=== PATIENT | female | born 1965 | race Caucasian/White ===

== ENCOUNTER 2024-08-19 10:58 | Emergency (ER) | payer OTHER, SELFPAY ==
[2024-08-19] VITALS (20 sets, daily range): BP systolic 158–226; BP diastolic 72–139; PULSE 70–114; RESP 18–28; TEMP 36.9; O2SAT 91–98; BMI 38.2
--- NOTE | 2024-08-19 11:54 | EKG_ITS ---
[place] [id number] [place] [id number] Test Date: 2024-08-19 Pat Name: Cindy Sandhu Department: [facility] Room: Gender: Female [employer] Tender: VICENTE : 1965 Requested By: Order Number: [id number] Reading MD: Adolfo Olsen Measurements Intervals Menan Rate: 78 P: 26 MS: 144 QRS: 4 QRSD: 86 T: 55 QT: 434 QTc: 494 Interpretive Statements Normal sinus rhythm Inferior infarct , age undetermined Cannot rule out Anterior infarct , age undetermined Electronically Signed On 08-19-2024 12:57:48 PST by Adolfo Olsen
--- NOTE | 2024-08-19 11:54 | DI.RAD.S_ITS ---
PROCEDURE: XR CHEST 1V INDICATIONS: hypertension TECHNIQUE: One view of the chest was acquired. COMPARISON: [facility], , CHEST 1 VIEW, 08/14/2017, 21:58. FINDINGS: Surgical changes and devices: None. Lungs and pleura: Lungs are clear. No pleural effusions or pneumothorax. Mediastinum: Mediastinal contours appear normal. Heart size is enlarged. Bones and chest wall: No suspicious bony lesions. Overlying soft tissues appear unremarkable. IMPRESSION: Cardiomegaly. No acute pulmonary process. Dictated by: Juni Walker M.D. on 08/19/2024 at 12:22 Approved by: Juni Walker M.D. on 08/19/2024 at 12:23
--- NOTE | 2024-08-19 11:54 | DI.CT.S_ITS ---
PROCEDURE: CT HEAD/BRAIN WO CON INDICATIONS: memory issues x 1 year TECHNIQUE: Noncontrast 4.5 mm thick angled axial sections acquired from the foramen magnum to the vertex, with coronal and sagittal reformats. For radiation dose reduction, the following was used: automated exposure control, adjustment of mA and/or kV according to patient size. COMPARISON: None. FINDINGS: Image quality: Diagnostic. CSF spaces: Basal cisterns are patent. No extra-axial fluid collections. The ventricles are symmetric in size and shape. Brain: Focus of higher density within the mid trisha measuring 6 millimeters. There is cerebral volume loss for age, with resultant ventricular and sulcal prominence. There are periventricular and deep white matter chronic small vessel ischemic changes. There is intracranial internal carotid artery atherosclerosis. Skull and face: Calvarium and visualized facial bones appear intact, without suspicious lesions. Sinuses: Visualized sinuses and mastoids are clear. IMPRESSION: Focus of hyperdensity within the mid trisha measuring 6 millimeters concerning for hemorrhage with mild surrounding low density, likely representing edema. Hypertensive hemorrhage is in the differential. Recommend MRI brain with and without contrast once hemorrhage resolves to exclude underlying neoplasm. Moderate chronic microvascular ischemic changes. Findings discussed with Dr. Emmanuel at the time of dictation. Dictated by: Juni Walker M.D. on 08/19/2024 at 12:37 Approved by: Juni Walker M.D. on 08/19/2024 at 12:43
[2024-08-19 12:14] LABS: Add Manual Diff / Slide Review NO; Basophils Absolute Auto 100 /uL (0-100); Eosinophils Absolute Auto 100 /uL (0-450); Eosinophils Percent Auto 1.2 % (2-4); Hematocrit 46.1 % (36-46); Lymphocytes Absolute Auto 1700 /uL (1100-4500); Mean Corpuscular HGB Conc 34.7 % (30-36); Mean Corpuscular Volume 89.2 fL (80-100); Monocytes Absolute Auto 400 /uL (0-900); Monocytes Percent Auto 4.5 % (3-14); Neutrophils Absolute Auto 6500 /uL (1500-7000); Neutrophils Percent Auto 74.3 % (50-75); Platelet Count 288 X10^3/uL (150-400); Red Blood Cell Count 5.16 X10^6/uL (4.0-5.2); White Blood Cell Count 8.7 X10^3/uL (4.5-11.0)
--- NOTE | 2024-08-19 12:14 | ED.AMS ---
HPI - Altered Mental Status General Chief Complaint: Altered Mental Status Stated Complaint: Memory issues over a year Time Seen by Provider: 08/19/24 11:54 Source: patient Mode of arrival: Ambulatory History of Present Illness HPI narrative: Patient is a 58-year-old female presenting today concern by her neighbor with ongoing memory issues. She lives alone on a [place]. Neighbor reports that for the last here she has had some difficulty met with her memory. She did have a closed head injury last summer was never seen or evaluated. It some point she went to the chiropractor. Patient is aware that she is in the emergency department for evaluation. She knows what year it is what season she really has no complaints. She is afebrile she is noted to be extremely hypertensive blood pressure of 220/119. Denying any chest pain or shortness of breath. She was perseverating on the fact that she normally puts her keys in her things exactly in the place but now she can not find them which is frustrating for her. She lives alone she has no family. Neighbor reports that symptoms have gotten worse over the last few days Related Data Home Medications Medication Instructions Recorded Confirmed thyroid (pork) 16.25 mg tablet 16.25 mg PO QDAY@0600 #0 tabs 04/02/13 (Nature-Throid) amlodipine 5 mg tablet (Norvasc) 5 mg PO QDAY ##0 08/14/17 Allergies Allergy/AdvReac Type Severity Reaction Status Date / Time lisinopril [LISINOPRIL] Allergy Unknown Unverified 11/04/17 12:02 Patient History Social History Smoking Status: Never smoker Smoking Status: Never smoker Exam Initial Vital Signs Initial Vital Signs: Vital Signs Temperature 98.4 F 08/19/24 11:20 Pulse Rate 92 H 08/19/24 11:20 Respiratory Rate 18 08/19/24 11:20 Blood Pressure 220/119 H 08/19/24 11:20 Pulse Oximetry 94 08/19/24 11:20 Oxygen Delivery Method Room Air 08/19/24 11:20 GENERAL: Pleasant nontoxic well-appearing 58-year-old female and in no acute distress. HEENT: Head atraumatic,EOMI, pupils reactive, face symmetric, moist mucous membranes CARDIOVASCULAR: Regular rate and rhythm without murmurs, rubs or gallops. RESPIRATORY: Breath sounds equal bilaterally, no wheezes rales or rhonchi. ABDOMEN: Soft, nontender. Normoactive bowel sounds all 4 quadrants. No guarding or rebound. EXTREMITIES: Normal range of motion, no clubbing or edema. Neurovascularly intact NEUROLOGICAL: Alert and oriented x4.Normal gait and speech. Cranial nerves II through XII grossly intact. Field Observer strength equal bilaterally able to ambulate in the ED to the restroom without ataxia can spell world backwards can count by sevens SKIN: Warm, dry, no laceration, no petechiae, no rashes or lesions. Scores GCS Alva coma scale eye opening: Spontaneous Alva coma scale verbal response: Orientated Loly coma scale motor response: Obey commands Loly coma scale total score: 15 NIH Stroke Scale Level of Conciousness: Alert, keenly responsive Ask month/age: Answers both questions correctly. Open/close eyes, close hand: Performs both tasks correctly Best gaze horizontal: Normal Visual ann: No visual loss Facial palsy: Normal symetrical movement Left arm drift: No drift for full 10 sec Right arm drift: No drift for full 10 sec Left leg drift: No drift for full 5 sec Right leg drift: No drift for full 5 sec Limb ataxia: Absent Sensory on face/arms/legs: Normal, no sensory loss Best language: No aphasia, normal Dysarthria: Normal Extinction or inattention: No abnormality Total NIH Stroke scale score: 0 Course Orders Ordered: ED Orders 08/19/24 11:24 [place] [facility] [place] Paper Testing Stat 08/19/24 11:54 CT head/brain wo con Stat Chest [XR chest 1V] Stat EKG-12 Lead Stat 08/19/24 12:00 ETOH [Ethanol (ETOH)] Stat 08/19/24 12:04 CBC Auto Diff [Complete Blood Count AUTO DIFF] Stat CMP [Comprehensive Metabolic Panel] Stat Troponin & CK Cardiac Panel Stat 08/19/24 12:16 Urine Culture Stat Urine Drug Screen, Rapid Stat Urine Microscopic Stat 08/19/24 13:18 CT angio head and neck Stat Discontinued Medications Nicardipine HCl 25 mg/ Sodium (Chloride) 250 mls @ 50 mls/hr IV TITRATE TED; Protocol Last Titration: 08/19/24 13:53 Dose: 11 mg/hr, 110 mls/hr Documented By: Titration: 08/19/24 13:40 Dose: 10.5 mg/hr, 105 mls/hr Documented By: Titration: 08/19/24 13:31 Dose: 8 mg/hr, 80 mls/hr Documented By: Titration: 08/19/24 13:23 Dose: 7.5 mg/hr, 75 mls/hr Documented By: Admin: 08/19/24 13:14 Dose: 5 mg/hr, 50 mls/hr Documented By: LULA Vital Signs Vital signs: Vital Signs - 8 hr 08/19/24 11:20 08/19/24 12:27 08/19/24 12:27 Temperature 98.4 F Pulse Rate 92 H 84 Respiratory Rate 18 Blood Pressure 220/119 H 199/108 H Pulse Oximetry 94 96 Oxygen Delivery Method Room Air 08/19/24 12:30 08/19/24 12:30 08/19/24 13:00 Temperature Pulse Rate 76 79 Respiratory Rate 23 Blood Pressure 206/112 H Pulse Oximetry 97 97 Oxygen Delivery Method 08/19/24 13:01 08/19/24 13:01 08/19/24 13:15 Temperature Pulse Rate 82 Respiratory Rate 22 Blood Pressure 211/139 H 216/115 H Pulse Oximetry 96 Oxygen Delivery Method 08/19/24 13:15 08/19/24 13:20 08/19/24 13:20 Temperature Pulse Rate 70 79 Respiratory Rate 23 28 H Blood Pressure 226/104 H Pulse Oximetry 96 98 Oxygen Delivery Method 08/19/24 13:29 08/19/24 13:29 08/19/24 13:30 Temperature Pulse Rate 93 H 93 H Respiratory Rate Blood Pressure 172/112 H Pulse Oximetry 97 95 Oxygen Delivery Method 08/19/24 13:32 08/19/24 13:32 08/19/24 13:39 Temperature Pulse Rate 95 H Respiratory Rate 22 Blood Pressure 203/121 H 192/95 H Pulse Oximetry 97 Oxygen Delivery Method 08/19/24 13:39 08/19/24 13:40 08/19/24 13:40 Temperature Pulse Rate 100 H 97 H Respiratory Rate 26 H 25 H Blood Pressure 185/99 H Pulse Oximetry 97 96 Oxygen Delivery Method 08/19/24 13:41 08/19/24 13:41 08/19/24 13:45 Temperature Pulse Rate 97 H Respiratory Rate 28 H Blood Pressure 195/99 H 187/97 H Pulse Oximetry 96 Oxygen Delivery Method 08/19/24 13:45 08/19/24 13:52 08/19/24 13:52 Temperature Pulse Rate 100 H 103 H Respiratory Rate Blood Pressure 190/84 H Pulse Oximetry 96 Oxygen Delivery Method 08/19/24 13:55 08/19/24 13:55 08/19/24 13:59 Temperature Pulse Rate 108 H Respiratory Rate Blood Pressure 187/86 H 176/87 H Pulse Oximetry Oxygen Delivery Method 08/19/24 13:59 08/19/24 14:00 08/19/24 14:00 Temperature Pulse Rate 103 H Respiratory Rate 27 H Blood Pressure 165/72 H Pulse Oximetry 97 96 Oxygen Delivery Method 08/19/24 14:06 08/19/24 14:06 08/19/24 14:10 Temperature Pulse Rate 114 H Respiratory Rate 22 Blood Pressure 158/77 H 167/80 H Pulse Oximetry 91 Oxygen Delivery Method 08/19/24 14:10 Temperature Pulse Rate 103 H Respiratory Rate 19 Blood Pressure Pulse Oximetry 95 Oxygen Delivery Method MDM - Altered Mental Status Lab Data 08/19/24 12:04 08/19/24 12:04 Labs: Lab Results 08/19/24 08/19/24 08/19/24 Range/Units 12:00 12:04 12:16 WBC 8.7 (4.5-11.0) X10^3/uL RBC 5.16 (4.0-5.2) X10^6/uL Hgb 16.0 (12.0-16.0) g/dL Hct 46.1 H (36-46) % MCV 89.2 (80-100) fL MCH 31.0 (26-34) PG MCHC 34.7 (30-36) % RDW 13.0 (11.6-14.8) % Plt Count 288 (150-400) X10^3/uL Neut % (Auto) 74.3 (50-75) % Lymph % (Auto) 19.0 L (25-40) % [place]ill % (Auto) 4.5 (3-14) % Eos % (Auto) 1.2 L (2-4) % Baso % (Auto) 1.0 (0-2) % Neut # (Auto) 6500 (6866-1883) /uL Lymph # (Auto) 1700 (3756-9216) /uL [place] # (Auto) 400 (0-900) /uL Eos # (Auto) 100 (0-450) /uL Baso # (Auto) 100 (0-100) /uL Sodium 135 L (137-145) mmol/L Potassium 3.1 L (3.4-5.1) mmol/L Chloride 94 L (98-107) mmol/L Carbon Dioxide 35 H (22-32) mmol/L BUN 20 H (7-17) mg/dL Creatinine 1.07 H (0.52-1.04) mg/dL Estimated GFR 59 L (>60) mL/min BUN/Creatinine Ratio 18.7 (6-22) Glucose 192 H (80-110) mg/dL Calcium 9.3 (8.4-10.2) mg/dL Total Bilirubin 1.1 (0.2-1.3) mg/dL AST 36 (14-36) IU/L ALT 23 (<35) IU/L Alkaline Phosphatase 74 (38-126) U/L Total Creatine Kinase 63 (30-135) U/L Troponin I 0.015 (0.01-0.034) ng/mL Total Protein 6.8 (6.3-8.2) g/dL Albumin 4.1 (3.5-5.0) g/dL Globulin 2.7 (1.7-4.1) g/dL Albumin/Globulin Ratio 1.5 (1.0-2.8) Urine RBC 5-10/hpf H (0-5/HPF) Urine WBC 1-5/hpf (0-5/HPF) Ur Squamous Epith Cells None seen (0-5/HPF) Urine Bacteria Many (>30) H (None) Ur Culture Indicated? Specimen cultured Vol Urine Centrifuged Low vol <10ml (spun) A U Opiates 300ng/mL cut Negative (Negative) Ur Oxycodone Screen Negative (Negative) Urine Methadone Screen Negative (Negative) Ur Barbiturates Screen Negative (Negative) U Tricyclic Antidepress Negative (Negative) Ur Phencyclidine Scrn Negative (Negative) Ur Amphetamines Screen Negative (Negative) U Methamphetamines Scrn Negative (Negative) Ur MDMA Scrn (Ecstasy) Negative (Negative) U Benzodiazepines Scrn Negative (Negative) Urine Cocaine Screen Negative (Negative) U Marijuana (THC) Screen Negative (Negative) Urine pH Normal (Normal) Urine Specific Whitman Normal (Normal) Ethyl Alcohol < 10 ( - 10) mg/dL Ur Creatinine Normal (Normal) Urine Dip Bedside Urine Glucose Negative Bedside Urine Bilirubin - Negative Bedside Urine Ketone + 15 Urine Specific Whitman 1.030 Bedside Urine Occult Blood +++ Bedside Urine pH 6.0 Bedside Urine Protein +++ 300 Bedside Urine Urobilinogen - Negative Bedside Urine Nitrite + Positive Bedside Urine Leukocytes - Negative Esterase Imaging Data CT scan - head: Radiologist's Impression: PROCEDURE: CT HEAD/BRAIN WO CON INDICATIONS: memory issues x 1 year TECHNIQUE: Noncontrast 4.5 mm thick angled axial sections acquired from the foramen magnum to the vertex, with coronal and sagittal reformats. For radiation dose reduction, the following was used: automated exposure control, adjustment of mA and/or kV according to patient size. COMPARISON: None. FINDINGS: Image quality: Diagnostic. CSF spaces: Basal cisterns are patent. No extra-axial fluid collections. The ventricles are symmetric in size and shape. Brain: Focus of higher density within the mid trisha measuring 6 millimeters. There is cerebral volume loss for age, with resultant ventricular and sulcal prominence. There are periventricular and deep white matter chronic small vessel ischemic changes. There is intracranial internal carotid artery atherosclerosis. Skull and face: Calvarium and visualized facial bones appear intact, without suspicious lesions. Sinuses: Visualized sinuses and mastoids are clear. IMPRESSION: Focus of hyperdensity within the mid trisha measuring 6 millimeters concerning for hemorrhage with mild surrounding low density, likely representing edema. Hypertensive hemorrhage is in the differential. Recommend MRI brain with and without contrast once hemorrhage resolves to exclude underlying neoplasm. Moderate chronic microvascular ischemic changes. Findings discussed with Dr. Emmanuel at the time of dictation. Dictated by: Juni Walker M.D. on 08/19/2024 at 12:37 Approved by: Juni Walker M.D. on 08/19/2024 at 12:43 Chest x-ray: Radiologist's Impression: PROCEDURE: XR CHEST 1V INDICATIONS: hypertension TECHNIQUE: One view of the chest was acquired. COMPARISON: [facility], CHEST 1 VIEW, 08/14/2017, 21:58. FINDINGS: Surgical changes and devices: None. Lungs and pleura: Lungs are clear. No pleural effusions or pneumothorax. Mediastinum: Mediastinal contours appear normal. Heart size is enlarged. Bones and chest wall: No suspicious bony lesions. Overlying soft tissues appear unremarkable. IMPRESSION: Cardiomegaly. No acute pulmonary process. Dictated by: Juni Walker M.D. on 08/19/2024 at 12:22 CTA - brain/neck: Radiologist's Impression: PROCEDURE: CT ANGIO HEAD AND NECK INDICATIONS: trisha hemorrhage TECHNIQUE: After the administration of intravenous contrast, 1 mm thick sections acquired from the aortic arch through the [place] of [place]. 3-dimensional fsvouzn-tgtdjmbhl-vtgyrtxmys (MIP) and/or volume rendering reformats were acquired of the central intracranial vasculature and neck separately. For radiation dose reduction, the following was used: automated exposure control, adjustment of mA and/or kV according to patient size. COMPARISON: None. FINDINGS: Image quality: Diagnostic. BRAIN: Please refer to same day CT of the head. HEAD CT ANGIOGRAPHY: Anterior circulation: Intracranial internal carotid arteries are normal in size and flow with atherosclerotic calcifications. The flow within the paired anterior cerebral arteries is normal and symmetric. The flow within the middle cerebral arteries is normal and symmetric. The anterior communicating artery is seen. No aneurysms are seen. Posterior circulation: Visualized portions of the vertebral arteries demonstrate normal caliber, and join to form a normal appearing basilar artery. origin of the right WOMEN'S APPAREL SALESPERSON. Focal area of high-grade stenosis involving the right P2/P3 junction (4/100). Left WOMEN'S APPAREL SALESPERSON appears patent and normal in caliber. No aneurysms are seen. NECK CT ANGIOGRAPHY: Carotid system: The great vessels demonstrate a conventional anatomy as they arise from the aortic arch. The origins of the common carotid arteries appear patent. The common carotid arteries demonstrate normal caliber and courses. The bifurcation regions are both widely patent. The internal carotid arteries demonstrate normal calibers and courses. Posterior circulation: The origins of the vertebral arteries both appear widely patent. The more superior extracranial portions of both vertebral arteries also demonstrate normal courses and calibers. They join to form a normal appearing basilar artery. Soft tissues: Visualized neck soft tissues demonstrate no suspicious abnormalities. Bones: No suspicious bony lesions. Visualized cervical spine appears normally aligned. Degenerative changes of the spine. IMPRESSION: Focal area of high-grade stenosis involving the right P2/P3 junction. Otherwise, no significant intracranial arterial abnormality is seen. No findings concerning for active contrast extravasation into the pontine hemorrhage. No abnormal vessels are seen within the vicinity of the hemorrhage. No significant abnormality is seen within the arteries of the neck. Any quantitative measurements of stenosis were performed using NASCET criteria. Dictated by: Juni Walker M.D. on 08/19/2024 at 13:59 ECG Data Attestation: I personally reviewed and interpreted this ECG as follows: Prior ECG tracings: available for review Interpretation: Normal sinus rhythm rate 78 FL interval 144 QRS 86 QTC 494 no ischemia Q-wave noted in lead 3 only MDM Narrative Medical decision making narrative: MDM CC: Confusion Complicating co-morbidities: Lives alone Data collected from: from neighbor in triage Medical records reviewed: Minimal records Differential considered: Dementia, CVA intracranial hemorrhage Exam documented above, pertinent findings include: Alert 58-year-old female mildly confused able to spell world backwards count by sevens neurovascularly intact but does have trouble remembering some stuff able to name objects Lab Test results independently reviewed as above. Pertinent findings: CBC no leukocytosis or anemia CMP mild electrolyte abnormality sodium 135 potassium 3.5 chloride 94 carbon dioxide 35 BUN 20 creatinine 1.0 glucose 192 Liver enzymes within normal limits Troponin 0.015 Urinalysis positive for nitrates and bacteria Independently reviewed EKG as above No ischemia Imaging studies independently reviewed: CT head shows 6 mm mid trisha hyperdensity concern for hypertensive bleeding CT angio-no active bleeding high-grade stenosis in right P2 P3 junction Chest x-ray no acute cardiopulmonary process Consultations: 1320 Dr. Jerez stroke consult at [facility] test results agrees with nicardipine drip request CT angio if it does not delay transfer and happily accepts patient Treatments: Nicardipine drip, Rocephin Re-evaluations: Patient tearful but remains neurovascularly intact. Blood pressure does decrease quite a bit with the nicardipine drip. Discussion: 58-year-old female presenting today with confusion memory issues ongoing for a year. Neighbor noticed it just getting worse. She does have a UTI but no evidence of sepsis she has no leukocytosis. She is noted to be extremely hypertensive with blood pressure 220/120. CT does show concern for 6 mm mid trisha intracranial hemorrhage which would be consistent with a hypertensive intracranial bleeding. Patient is accepted at [facility]. Placed on nicardipine drip blood pressure has improved. She remains neurovascularly intact and stable. Critical Care Time Critical Care Time Critical Care Time: Yes Total Critical Care Time: 45 Attestation: The high probability of a clinically significant, sudden or life threatening deterioration of the neurovascular system(s) required my full and direct attention, intervention and personal management. The aggregate critical care time was [45] minutes. This time is in addition to time spent performing reported procedures but includes the following: [x] Data Review and interpretation [x] Patient assessment and monitoring of vital signs [x] Documentation [x] Medication orders and management Discharge Plan Departure [facility] Disposition: [facility] Clinical Impression: Acute intracranial hemorrhage, UTI (urinary tract infection) Prescriptions: No Action thyroid (pork) [Nature-Throid] 16.25 MG tablet 16.25 mg PO QDAY@0600 Qty: 0 amlodipine [Norvasc] 5 MG tablet 5 mg PO QDAY Qty: 0 Referrals: Miscellaneous,Doctor, MD [Primary Care Provider] -
[2024-08-19 12:24] LABS: Alanine Aminotransferase 23 IU/L (<35); Albumin 4.1 g/dL (3.5-5.0); Albumin Globulin Ratio 1.5 (1.0-2.8); Alkaline Phosphatase 74 U/L (38-126); Aspartate Aminotransferase 36 IU/L (14-36); BUN Creatinine Ratio 18.7 (6-22); Bilirubin Total 1.1 mg/dL (0.2-1.3); Blood Urea Nitrogen 20 mg/dL (7-17); Calcium 9.3 mg/dL (8.4-10.2); Carbon Dioxide 35 mmol/L (22-32); Chloride 94 mmol/L (98-107); Creatine Kinase 63 U/L (30-135); Estimated Glomerular Filt Rate 59 mL/min (>60); Globulin 2.7 g/dL (1.7-4.1); Glucose 192 mg/dL (80-110); HEMOLYSIS < 15 (0-50); Potassium 3.1 mmol/L (3.4-5.1); Sodium 135 mmol/L (137-145); Total Protein 6.8 g/dL (6.3-8.2)
[2024-08-19 12:34] LABS: Ur Creatinine Normal (Normal); Ur Specific Gravity Normal (Normal); Urine Amphetamines Negative (Negative); Urine Barbiturates Negative (Negative); Urine Benzodiazepines Negative (Negative); Urine Cocaine Negative (Negative); Urine MDMA Negative (Negative); Urine Methadone Negative (Negative); Urine Methamphetamines Negative (Negative); Urine Opiates Negative (Negative); Urine Oxycodone Negative (Negative); Urine Phencyclidine Negative (Negative); Urine THC Negative (Negative); Urine Tricyclic Antidepressant Negative (Negative); Urine pH Normal (Normal)
[2024-08-19 12:35] LABS: Ethanol (ETOH) < 10 mg/dL
[2024-08-19 12:35] LABS: Urine Volume Low Vol <10mL (spun)
[2024-08-19 12:36] LABS: Troponin I 0.015 ng/mL (0.01-0.034)
[2024-08-19 12:41] LABS: Bacteria Urine Many (>30); Culture Indicated Urine Specimen Cultured; RBC Urine 5-10/HPF (0-5/HPF); Squamous Epithelial Cell Urine None Seen (0-5/HPF); WBC Urine 1-5/HPF (0-5/HPF)
[2024-08-19] MEDS: NICARDIPINE 25 MG in SODIUM CHLORIDE 0.9% 240 ML 50 MG IV (13:14)
--- NOTE | 2024-08-19 13:18 | DI.CT.S_ITS ---
PROCEDURE: CT ANGIO HEAD AND NECK INDICATIONS: trisha hemorrhage TECHNIQUE: After the administration of intravenous contrast, 1 mm thick sections acquired from the aortic arch through the [place] of [place]. 3-dimensional ibhhxwq-wbjhciozr-eflgiybwjd (MIP) and/or volume rendering reformats were acquired of the central intracranial vasculature and neck separately. For radiation dose reduction, the following was used: automated exposure control, adjustment of mA and/or kV according to patient size. COMPARISON: None. FINDINGS: Image quality: Diagnostic. BRAIN: Please refer to same day CT of the head. HEAD CT ANGIOGRAPHY: Anterior circulation: Intracranial internal carotid arteries are normal in size and flow with atherosclerotic calcifications. The flow within the paired anterior cerebral arteries is normal and symmetric. The flow within the middle cerebral arteries is normal and symmetric. The anterior communicating artery is seen. No aneurysms are seen. Posterior circulation: Visualized portions of the vertebral arteries demonstrate normal caliber, and join to form a normal appearing basilar artery. origin of the right ROOFER GYPSUM. Focal area of high-grade stenosis involving the right P2/P3 junction (4/100). Left ROOFER GYPSUM appears patent and normal in caliber. No aneurysms are seen. NECK CT ANGIOGRAPHY: Carotid system: The great vessels demonstrate a conventional anatomy as they arise from the aortic arch. The origins of the common carotid arteries appear patent. The common carotid arteries demonstrate normal caliber and courses. The bifurcation regions are both widely patent. The internal carotid arteries demonstrate normal calibers and courses. Posterior circulation: The origins of the vertebral arteries both appear widely patent. The more superior extracranial portions of both vertebral arteries also demonstrate normal courses and calibers. They join to form a normal appearing basilar artery. Soft tissues: Visualized neck soft tissues demonstrate no suspicious abnormalities. Bones: No suspicious bony lesions. Visualized cervical spine appears normally aligned. Degenerative changes of the spine. IMPRESSION: Focal area of high-grade stenosis involving the right P2/P3 junction. Otherwise, no significant intracranial arterial abnormality is seen. No findings concerning for active contrast extravasation into the pontine hemorrhage. No abnormal vessels are seen within the vicinity of the hemorrhage. No significant abnormality is seen within the arteries of the neck. Any quantitative measurements of stenosis were performed using NASCET criteria. Dictated by: Juni Walker M.D. on 08/19/2024 at 13:59 Approved by: Juni aWlker M.D. on 08/19/2024 at 14:07
--- NOTE | 2024-08-19 14:00 | PC.NURSE ---
Addendum entered by Tonie Pimentel R.N. 08/19/24 14:25: Pt a&ox4 at the time of transfer. Pupils equal, round and reactive. Denies MARIO, numbness, tingling in extremities. Speaking in full sentences and able to stand and pivot to Airlift gurney. Original Note: Pt arrived to ED with friend today for ongoing memory loss and issues. Pt states that she often finds herself losing hours of time over the past year. pt a&ox4 and answers all questions appropriately during assessment. States that she fell last summer and sustained a a pretty good concussion but she was never evaluated for her injuries. Pt hypertensive and states that she thinks her bp is elevated because of several co-occuring life stressors. Pt requested DIETARY TECH consult.
--- NOTE | 2024-08-19 15:03 | CM.SWNOTE ---
ED MANAGER OPERATIONS Note Patient is 58 y/o female who presents to ED via neighbor's POV due to concern for AMS. It is reported that patient has been experiencing short term memory loss, misplacing things including her keys and had an incident a few weeks ago where she had a syncopal episode. Patient does not have PCP listed, patient has [employer] insurance. MANAGER OPERATIONS receives consult due to concern for patient's SI and concern for housing, transportation and food access. MANAGER OPERATIONS enters room to meet with patient, patient presents as A/Ox3, patient presents as anxious, coherent with circumstantial speech. Patient endorses that she has been freaked out due to her recent memory loss episodes and difficulty with recall. Patient endorses that she lives alone on a boat in the [place]. Patient denies any local friends or family and states that her neighbors have been supportive and recommended she go to the ED. Patient endorses that she has been experiencing thoughts of SI due to her concern for her cognitive functioning. She states that she had thoughts of checking out. Patient denied current SI. This MANAGER OPERATIONS did not get to complete formal and thorough assessment as patient's CT scan resulted concern for acute intracranial hemorrhage and patient required further medical attention in the ED. Patient was accepted at [facility] requiring airlift transport. This MANAGER OPERATIONS assisted patient in filling out airlift transport membership online. Patient diagnosed with UTI, high blood pressure and acute intracranial hemorrhage. Patient was transferred to [facility] via airlift for higher level of care. YFN Marquez
== END 2024-08-19 14:35 | disposition short-term general hospital (02) ==
PROVIDERS: Emergency Provider Emergency Medicine
DX: I62.9 Nontraumatic intracranial hemorrhage, unspecified (principal); I10 Essential (primary) hypertension; N39.0 Urinary tract infection, site not specified; R29.700 NIHSS score 0; R40.2412 Glasgow coma scale score 13-15, at arrival to emergency department
CPT/HCPCS: 36415; 70450; 70496; 70498; 71045; 80053; 80305; 80320; 81003; 81015; 82550; 84484; 85025; 87077; 87086; 87186; 93005; 96365; 99284; 99291; Q9967